=== PATIENT | female | born 1960 | race Caucasian/White ===

== ENCOUNTER → 2021-02-08 11:30 | Outpatient (CLI) | payer BC, SELFPAY ==
--- NOTE | ~2021-02-08 | XR_ITS ---
XR knee LT min 4V 02/08/2021 12:16 Indication: Left knee pain Procedure: 4 views left knee Comparison: 03/26/2008 Findings: There is severe tricompartment osteoarthritis, most advanced in the medial compartment. No fracture or traumatic malalignment. No significant joint effusion. No foreign bodies. Impression: 1: Severe osteoarthritis of the left knee. Reviewed, dictated and finalized at location B. Impression: 1: Severe osteoarthritis of the left knee.
--- NOTE | ~2021-02-08 | XR_ITS ---
XR knee RT min 4V 02/08/2021 12:16 Indication: Right knee pain Procedure: 4 views right knee Comparison: No prior studies for comparison. Findings: There is moderate osteoarthritis of the right knee. No fracture or traumatic malalignment. No significant joint effusion. No foreign bodies. Impression: 1: Moderate osteoarthritis of the right knee. Reviewed, dictated and finalized at location B. Impression: 1: Moderate osteoarthritis of the right knee.
== END ==
PROVIDERS: PCP Physician Assistant; Visit Provider Physician Assistant
DX: M17.0 Bilateral primary osteoarthritis of knee (principal)
CPT/HCPCS: 73564

== ENCOUNTER → 2021-07-06 09:38 | Outpatient (CLI) | payer BC, SELFPAY ==
--- NOTE | ~2021-07-06 | MM_ITS ---
EXAMINATION: MM screening [facility] BI w [place] HISTORY: Screening mammogram TECHNIQUE: Craniocaudal and mediolateral oblique 3-D tomosynthesis images were obtained and synthetic 2-D images were generated. CAD analysis was submitted and interpreted. COMPARISON: 08/31/2019, 03/02/2010 BREAST PARENCHYMAL COMPOSITION: The breasts are almost entirely fatty. FINDINGS: There is no evidence of suspicious mass, calcification, or architectural distortion to sugg est malignancy in either breast. There has been no suspicious interval change. IMPRESSION: 1. No mammographic evidence of malignancy. 2. Recommend routine screening mammography in one year. BI-RADS Category 1: Negative Reviewed, dictated and finalized at location A. TERMAN
== END ==
PROVIDERS: Visit Provider Advanced Practice Midwife
DX: Z12.31 Encounter for screening mammogram for malignant neoplasm of breast (principal)
CPT/HCPCS: 77063; 77067

== ENCOUNTER → 2021-07-13 00:22 | Outpatient (CLI) | payer BC, SELFPAY ==
[2021-07-13 19:57] LABS: SARS-CoV-2 RNA PCR Positive
== END ==
PROVIDERS: PCP Family Medicine; Visit Provider Physician Assistant
DX: U07.1 COVID-19 (principal)
CPT/HCPCS: C9803; U0003; U0005

== ENCOUNTER → 2021-07-20 01:15 | Outpatient (CLI) | payer BC, SELFPAY ==
[2021-07-20 18:54] LABS: SARS-CoV-2 RNA PCR Positive
== END ==
PROVIDERS: PCP Family Medicine; Visit Provider Physician Assistant
DX: U07.1 COVID-19 (principal)
CPT/HCPCS: C9803; U0003; U0005

== ENCOUNTER 2021-08-07 16:30 | Emergency (ER) | payer BC, SELFPAY ==
--- NOTE | 2021-08-07 16:34 | ED.WOUNDLAC ---
HPI - Wound/Laceration General Chief Complaint: Skin/Abscess/Foreign Body Stated Complaint: L HAND LACERATION Time Seen by Provider: 08/07/21 16:34 Source: patient and RN notes reviewed History of Present Illness HPI narrative: Patient is a 60-year-old female who presents the urgent care with complaints of a laceration to the left thumb. Patient states that she cut it with a pair of scissors approximately 8 or 9 hours ago. Patient states she is up-to-date on her tetanus shot. Patient states she cleaned it out with plain Dial soap and water and kept it covered with a bandage. No other acute complaints or injuries. No acute distress noted. Patient aware of the plan of care. Some parts of this dictation were generated by voice recognition software and may contain typographical and/or grammatical inaccuracies. Related Data Home Medications Medication Instructions Recorded Confirmed estradiol 1 mg PO DAILY 08/07/21 08/07/21 Allergies Allergy/AdvReac Type Severity Reaction Status Date / Time erythromycin base Allergy Unknown Nausea Verified 03/13/21 10:36 Review of Systems Review of Systems: CONSTITUTIONAL: Denies fever, chills, or sweats. EYES: Denies visual changes, redness, or discharge. ENT: Denies rhinorrhea, congestion, sore throat, or otalgia. CARDIOVASCULAR: Denies chest pain, palpitations, or edema. RESPIRATORY: Denies cough or dyspnea. GASTROINTESTINAL: Denies abdominal pain, nausea, vomiting, or diarrhea. GENITOURINARY: Denies dysuria or hematuria. SKIN: Reports of a laceration to the left thumb MUSCULOSKELETAL: Denies back pain, joint pain, or myalgia. NEUROLOGIC: Denies headache, numbness, or weakness. All other systems reviewed are negative, except as documented in HPI. [facility] Family History Family History Mother Diabetes mellitus Hypertension Family history of cardiovascular disease Acute myocardial infarction Family history of malignant neoplasm of uterus Sibling Hypertension Father Family history of elevated blood lipids Family history of Parkinson's disease Grandparent Cerebrovascular accident Family history of lung cancer Family history of malignant neoplasm of uterus Social History Social History Alcohol intake: never Comments At the time of my signature, I reviewed and agree with the nursing past medical, surgical, social, and family history. There is no relevant family history pertinent to the patient complaint. Exam Narrative: GENERAL: This is a well-nourished, well-developed patient, in no apparent distress. HEAD: normocephalic, atraumatic. EYES: PERRL. Sclera clear/white. Vision is grossly intact. EARS: External ears normal NOSE: External nose normal with no obvious nasal discharge, nares without redness, no rhinorrhea. THROAT: Mucous membranes moist NECK: Neck supple CARDIOVASCULAR: Regular rate and rhythm without murmurs, gallops, or rubs. RESPIRATORY: Clear to auscultation. Breath sounds equal bilaterally. No wheezes, rales, or rhonchi. SKIN: warm, intact with no suspicious lesions or rash, good texture and turgor. NEURO: awake, alert, and oriented to person, place and time. There were no obvious focal neurologic abnormalities. EXTREMITIES: No clubbing, cyanosis, or edema. Range of motion to left upper extremity within normal limits. Positive strong left radial pulse with capillary refill less than 2 seconds. Course Vital Signs Vital signs: Vital Signs Temperature 96.9 F L 08/07/21 16:39 Pulse Rate 86 08/07/21 16:39 Respiratory Rate 16 08/07/21 16:39 Blood Pressure 174/73 H 08/07/21 16:39 Pulse Oximetry 98 08/07/21 16:39 Temperature 96.9 F L 08/07/21 16:39 Pulse Rate 86 08/07/21 16:39 Respiratory Rate 16 08/07/21 16:39 Blood Pressure 174/73 H 08/07/21 16:39 Pulse Oximetry 98 08/07/21 16:39 Reviewed-patient is informed lupe
[2021-08-07 16:39] VITALS: BP 174/73; PULSE 86; RESP 16; TEMP 36.1; O2SAT 98
== END 2021-08-07 17:05 | disposition home or self-care (01) ==
PROVIDERS: Emergency Provider Nurse Practitioner Family; PCP Family Medicine
DX: S61.012A Laceration without foreign body of left thumb without damage to nail, initial encounter (principal); W27.2XXA Contact with scissors, initial encounter
CPT/HCPCS: 12001; 99212; G0463

== ENCOUNTER 2021-11-25 00:16 | Day surgery (SDC) | payer BC, SELFPAY ==
[2021-11-13 13:15] VITALS: BMI 44.6
[2021-11-25 07:10] VITALS: BP 149/84; PULSE 67; RESP 16; TEMP 36.4; O2SAT 99; BMI 43.6
[2021-11-25] MEDS: LACTATED RINGERS 1,000 ML 150 ML IV CONT (07:29)
--- NOTE | 2021-11-25 07:42 | PM.HPGS ---
History of Present Illness History of Present Illness Consent: Risks, benefits, and alternatives have been discussed and questions answered. Patient agrees to proceed with procedure. Chief complaint: neoplasm screening Narrative: Inés Vicente is a 61 year old female Referred for colon cancer screening Review of Systems Review of Systems: All systems reviewed & are unremarkable except as noted in HPI and below PMFSH Family History Family History Mother Diabetes mellitus Hypertension Family history of cardiovascular disease Acute myocardial infarction Family history of malignant neoplasm of uterus Sibling Hypertension Father Family history of elevated blood lipids Family history of Parkinson's disease Grandparent Cerebrovascular accident Family history of lung cancer Family history of malignant neoplasm of uterus Social History Social History Smoking status: Never smoker Alcohol intake: never Substance use: never Substance use type: does not use Living arrangements: with family Spiritual care concerns: No Meds Home Medications and Allergies Home Medications Medication Instructions Recorded Confirmed Type naproxen 500 mg tablet 500 mg PO BID PRN #60 tablet 02/07/21 11/25/21 Rx hydroxyzine HCl 10 mg tablet 10 mg PO TID PRN #30 tablet 08/28/21 11/25/21 Rx zolpidem 10 mg tablet 10 mg PO QHS PRN #30 tablet 09/13/21 11/25/21 Rx citalopram 20 mg tablet See Rx Instructions .ROUTE 10/23/21 11/25/21 History .COMPLEX tablet estradiol 1 mg tablet 1 mg PO DAILY 10/23/21 11/25/21 History Allergies Allergy/AdvReac Type Severity Reaction Status Date / Time erythromycin base Allergy Unknown Nausea Verified 11/25/21 07:18 celery AdvReac Anaphylaxis Verified 11/25/21 07:18 watermelon AdvReac Anaphylaxis Verified 11/25/21 07:18 Vital Signs Vital Signs - 24 hr 11/25/21 07:10 Temperature 36.4 C L Pulse Rate 67 Respiratory Rate 16 Blood Pressure 149/84 H Pulse Oximetry 99 Exam Resp: Auscultation: clear to auscultation bilaterally Cardio: Rate: regular rate Rhythm: regular rhythm GI: GI Palp: Yes Soft to palpation and No Tenderness to palpation present (GI) Assessment and Plan Assessment and plan (1) Colon cancer screening: Code(s): Z12.11 - Encounter for screening for malignant neoplasm of colon Status: Acute Assessment and Plan: Colonoscopy with possible biopsy or polypectomy or cautery or injection of substances.
--- NOTE | 2021-11-25 07:52 | P.PNAN_ITS ---
Anes - Initial Pre Proc Eval Procedure: Operation Date: 11/25/21 08:30 Proposed Procedures p Screening Colonoscopy - Jovan Montoya MD Date/Time: 11/25/21 07:52 Surgeon: Jovan Montoya MD Pre Op Diagnosis: neoplasm screening Patient Data Age: 61 Gender: F Height: 1.63 m Weight: 115.3 kg Last Vital Signs Temp 97.5 F L 11/25/21 07:10 Pulse 67 11/25/21 07:10 Resp 16 11/25/21 07:10 BP 149/84 H 11/25/21 07:10 Pulse Ox 99 11/25/21 07:10 Allergies Allergy/AdvReac Type Severity Reaction Status Date / Time erythromycin base Allergy Unknown Nausea Verified 11/25/21 07:18 celery AdvReac Anaphylaxis Verified 11/25/21 07:18 watermelon AdvReac Anaphylaxis Verified 11/25/21 07:18 Home Medications Medication Instructions Recorded Confirmed Type naproxen 500 mg tablet 500 mg PO BID PRN #60 tablet 02/07/21 11/25/21 Rx hydroxyzine HCl 10 mg tablet 10 mg PO TID PRN #30 tablet 08/28/21 11/25/21 Rx zolpidem 10 mg tablet 10 mg PO QHS PRN #30 tablet 09/13/21 11/25/21 Rx citalopram 20 mg tablet See Rx Instructions .ROUTE 10/23/21 11/25/21 History .COMPLEX tablet estradiol 1 mg tablet 1 mg PO DAILY 10/23/21 11/25/21 History Patient hx anesthesia problems: none Family hx anesthesia problems: none Results Review: All pre-operative results and documents have been reviewed as part of the pre-operative evaluation. [facility] Family History Family History Mother Diabetes mellitus Hypertension Family history of cardiovascular disease Acute myocardial infarction Family history of malignant neoplasm of uterus Sibling Hypertension Father Family history of elevated blood lipids Family history of Parkinson's disease Grandparent Cerebrovascular accident Family history of lung cancer Family history of malignant neoplasm of uterus Social History Social History Smoking status: Never smoker Alcohol intake: never Substance use: never Substance use type: does not use Living arrangements: with family Spiritual care concerns: No Anes - Eval Final PreProcedure Day of Procedure 11/25/21 07:52 Patient weight: morbidly obese Heart: regular rate and rhythm Lungs: clear to auscultation Airway: Mallampati scale class II Neurological: alert and oriented Last oral intake: >/= 8 hours ASA classification: III Emergent: no Anesthetic plan: proceed Anesthesia type and monitoring: general GIVS and standard monitoring Results Review: All pre-operative results and documents have been reviewed as part of the pre-operative evaluation. Informed Consent: The patient's anesthetic plan and its attendant risks and benefits were discussed with the patient/family/POA. Questions were solicited and answers provided to the satisfaction of the patient/family/POA.
[2021-11-25 08:37] VITALS: BP 144/86; PULSE 65; RESP 14; O2SAT 96
[2021-11-25 08:47] VITALS: BP 144/90; PULSE 62; RESP 21; O2SAT 96
[2021-11-25 08:57] VITALS: BP 140/85; PULSE 61; RESP 16; O2SAT 100
== END 2021-11-25 09:08 | disposition home or self-care (01) ==
PROVIDERS: PCP Family Medicine; Visit Provider Internal Medicine Gastroenterology
PROC: 0DJD8ZZ Inspection of Lower Intestinal Tract, Via Natural or Artificial Opening Endoscopic (ICD-10-PCS; CPT 45378; principal; 2021-11-25 08:30)
DX: Z12.11 Encounter for screening for malignant neoplasm of colon (principal)
CPT/HCPCS: 45378; J2704; J7120

== ENCOUNTER → 2022-03-15 08:29 | Outpatient (CLI) | payer BC, SELFPAY ==
--- NOTE | ~2022-03-15 | XR_ITS ---
EXAM: XR lumbar spine min 4V DATE: 03/15/2022 09:29 HISTORY: M54.9 - Dorsalgia, unspecified . COMPARISON: None available. FINDINGS: Cholecystectomy clips. Bilateral pelvic and right iliac vascular clips. Multilevel disc sp marvin narrowing and marginal osteophytosis, severe at L3-4. 6 nonrib-bearing lumbar-type vertebral bodi es. Possible hypoplastic/absent ribs at T12 versus true 6 lumbar-type vertebral bodies. The last full y formed disc will be designated L6-S1. Pedicles intact. Normal vertebral body alignment. Vertebral b tiffany heights preserved. Multilevel facet sclerosis and hypertrophy. No fracture or dislocation. IMPRESSION: Spinal level numbering anomaly, described above. Severe degenerative disc disease at L3-4 . Multilevel facet arthropathy. Reviewed, dictated and finalized at location K. IMPRESSION: Spinal level numbering anomaly, described above. Severe degenerativ e disc disease at L3-4. Multilevel facet arthropathy.
--- NOTE | ~2022-03-15 | XR_ITS ---
XR cervical spine 4-5V DATE: 03/15/2022 09:29 INDICATION: Neck pain TECHNIQUE: AP, open-mouth, lateral and swimmer views COMPARISON: None FINDINGS: There is reversal of cervical curvature and mild cervical levoscoliosis. There is approximately 2.5 mm anterolisthesis and C3-4. There is approximately 1.3 mm anterolisthesis at C4-5. Moderately severe degenerative disc disease at C5-6. C1 and C2 are normally aligned and the odontoid process is intact. No fracture or dislocation or lock ed facet or prevertebral soft tissue swelling. IMPRESSION: Reversal cervical curvature and mild levoscoliosis Anterolisthesis at C3-4 and C4-5 Moderately severe degenerative disc disease at C5-6 Reviewed, dictated and finalized at location B.
== END ==
PROVIDERS: PCP Family Medicine; Visit Provider Family Medicine
DX: M50.322 Other cervical disc degeneration at C5-C6 level (principal); M51.36 Other intervertebral disc degeneration, lumbar region
CPT/HCPCS: 72050; 72110

== ENCOUNTER 2022-06-25 09:06 | Outpatient (CLI) | payer BC, SELFPAY ==
[2022-06-25 19:28] LABS: Vitamin D 25 Hydroxy 41.4 ng/mL
== END 2022-06-25 09:07 | disposition home or self-care (01) ==
LOC: ANHGOSHLAB 09:08
PROVIDERS: PCP Family Medicine; Visit Provider Family Medicine
DX: E55.9 Vitamin D deficiency, unspecified (principal)
CPT/HCPCS: 36415; 82306

== ENCOUNTER 2022-12-23 08:16 | Outpatient (CLI) | payer OTHER, SELFPAY ==
--- NOTE | ~2022-12-23 | MR_ITS ---
MRI of the cervical spine Clinical History: Chronic neck pain Technique: Axial T2-weighted and gradient images, and sagittal T1-weighted, T2-weighted, and STIR sherly ges were acquired. Findings: There is minimal reversal normal cervical lordosis. No fracture or subluxation seen. No abn ormal bone marrow signal identified. At C2-C3, there is no disc bulge or herniation. There is mild bilateral facet arthropathy. No spinal canal stenosis, cord compression, or neural foraminal narrowing. At C3-C4, there is right foraminal disc osteophyte complex with right-sided facet arthropathy and sev ere right neural foraminal narrowing. No spinal canal stenosis or cord compression. Left neural yeni en is preserved. At C4-C5, there is minimal disc osteophyte complex and mild facet arthropathy. There is no spinal can al stenosis, cord compression, or definite neural foraminal narrowing. At C5-C6, there is mild disc osteophyte complex and probable minimal flattening the ventral cord. The re is left neural foraminal narrowing, with mild left facet arthropathy. Right neural foramen preserv ed. At C6-C7, there is no disc bulge or herniation. No spinal canal stenosis, cord compression, or neural foraminal narrowing. No abnormal signal seen in the spinal cord. Paravertebral soft tissues are unremarkable. Impression: Severe right neural foraminal narrowing at C3-C4 related to right-sided facet arthropathy and right f oraminal disc osteophyte complex. Minimal flattening of the ventral cord at C5-C6 related to disc osteophyte complex. Left neural yeni inal narrowing also present at this level. Reviewed, dictated and finalized at [facility]. Impression: Severe right neural foraminal narrowing at C3-C4 related to right-sided facet a rthropathy and right foraminal disc osteophyte complex. Minimal flattening of the ventral cord at C5-C6 related to disc osteophyte comp ne. Left neural foraminal narrowing also present at this level.
--- NOTE | ~2022-12-23 | MR_ITS ---
MRI of the lumbar spine Clinical History: Back pain Technique: Axial T2-weighted images, and sagittal T1-weighted, T2-weighted, and T2 fat-sat images wer e acquired. Findings: There is no fracture or sublocation of the lumbar spine. Vertebral bodies maintain normal h eight and alignment. No suspicious bone marrow signal abnormality seen. At L1-L2, there is moderate facet arthropathy. No disc bulge or herniation. No spinal canal stenosis. There is mild right neural foraminal narrowing. Left neural foramen preserved. At L2-L3, there is advanced degenerative disc narrowing with diffuse disc bulge. There is moderate fa cet arthropathy. There is mild right lateral recess stenosis. There is moderate right neural foramina l narrowing and mild left neural foraminal narrowing. At L3-L4, there is mild diffuse disc bulge with severe facet arthropathy. No spinal canal stenosis. T here is moderate bilateral neural foraminal narrowing. At L4-L5, there is diffuse disc bulge and severe facet arthropathy, with resultant moderate central c anal stenosis. There is severe bilateral neural foraminal narrowing. At L5-S1, there is advanced facet arthropathy. No disc bulge or herniation. No spinal canal stenosis or neural foraminal narrowing. Paravertebral soft tissues are unremarkable. Impression: Moderate degenerative spondylosis, as detailed above. Findings are worst at L4-L5. Reviewed, dictated and finalized at [facility]. Impression: Moderate degenerative spondylosis, as detailed above. Findings are worst at L4- L5.
== END 2022-12-23 08:17 ==
PROVIDERS: PCP Family Medicine; Visit Provider Family Medicine
DX: M54.2 Cervicalgia (principal); G89.29 Other chronic pain; M47.896 Other spondylosis, lumbar region
CPT/HCPCS: 72141; 72148

== ENCOUNTER 2023-09-27 12:07 | Emergency (ER) | payer BC, SELFPAY ==
--- NOTE | 2023-09-27 12:22 | ED.URI ---
HPI - URI/Sore Throat General Chief Complaint: Upper Respiratory Infection Stated Complaint: BODY ACHES/HEADACHE/SORE THROAT/EARACHE Time Seen by Provider: 09/27/23 12:22 Source: patient, RN notes reviewed and old records reviewed Mode of arrival: ambulatory Limitations: no limitations History of Present Illness HPI Narrative: 62-year-old female presents to the [facility] with complaints of body aches, runny nose, sore throat, ear pain that started on Thursday, 2 days ago Treatments prior to arrival: cold medicine Related Data Home Medications Medication Instructions Recorded Confirmed esomeprazole magnesium 20 mg 20 mg PO DAILY 04/24/22 09/27/23 capsule,delayed release (Nexium) meloxicam 7.5 mg tablet 7.5 mg PO BIDWMEAL PRN knee pain 01/01/23 09/27/23 Allergies Allergy/AdvReac Type Severity Reaction Status Date / Time erythromycin base Allergy Unknown Nausea Verified 09/27/23 12:16 celery AdvReac Anaphylaxis Verified 09/27/23 12:16 watermelon AdvReac Anaphylaxis Verified 09/27/23 12:16 Review of Systems Review of Systems: All systems reviewed & are unremarkable except as noted in HPI and below Constitutional: Constitutional: Reports as per HPI, Reports body ache(s) and Reports headache(s) Eyes: Eyes: Reports no additional eye complaints ENT: Reports as per HPI, Reports nasal discharge and Reports sore throat Cardiovascular: Cardiovascular: Reports no additional cardiovascular complaints, Denies chest pain and Denies dyspnea Respiratory: Respiratory: Reports no additional respiratory complaints, Denies chest congestion, Denies cough and Denies dyspnea Gastrointestinal: Gastrointestinal: Reports no additional gastrointestinal complaints, Denies abdominal pain, Denies nausea and Denies vomiting Musculoskeletal: Musculoskeletal: Reports no additional musculoskeletal complaints Integumentary/Breasts: Skin/Breast: Reports system reviewed and no additional complaints, except as docu Neurologic: Reports system reviewed and no additional complaints, except as documented Psychiatric: Psychiatric: Reports no additional psychiatric complaints Allergic/Immunologic: Allergic/Immunologic: Reports no additional allergic/immunologic complaints PMFSH Past Medical History Medical History Arthritis Endometrial cancer GERD (gastroesophageal reflux disease) IBS (irritable bowel syndrome) Surgical History Surgical History H/O: hysterectomy 2010 Family History Family History Mother Diabetes mellitus Hypertension Family history of cardiovascular disease Acute myocardial infarction Family history of malignant neoplasm of uterus Depression Sibling Hypertension Diabetes mellitus Father Family history of elevated blood lipids Family history of Parkinson's disease Heart disease Grandparent Cerebrovascular accident Family history of lung cancer Family history of malignant neoplasm of uterus Daughter Hypertension Social History Social History Social History: Caffeine- daily Smoking status: Never smoker Alcohol intake: never Substance use: never Substance use type: does not use Do You Feel Safe in your Home?: Yes Lack of Transportation: No Lack of Food: Never True Current Housing: I Have Housing Concerned About Future Housing: No Difficulty Paying Gas/Electric Bills: No Difficulty Paying for Meds: No Currently Unemployed: No Education: Trade/Vocational Certificate Difficulty w/ Childcare or Family Care: No Living arrangements: with family Spiritual care concerns: No Comments At the time of my signature, I reviewed and agree with the nursing past medical, surgical, social, and family history. There is no relevant family history pertinent to the
[2023-09-27 12:29] VITALS: BP 145/95; PULSE 89; RESP 16; TEMP 36; O2SAT 99
== END 2023-09-27 12:53 | disposition home or self-care (01) ==
PROVIDERS: Emergency Provider Nurse Practitioner; PCP Family Medicine
DX: U07.1 COVID-19 (principal); Z20.822 Contact with and (suspected) exposure to COVID-19; M19.90 Unspecified osteoarthritis, unspecified site; K21.9 Gastro-esophageal reflux disease without esophagitis; Z85.42 Personal history of malignant neoplasm of other parts of uterus
CPT/HCPCS: 87081; 87426; 87804; 87880; 99213; G0463

== ENCOUNTER 2024-05-09 17:00 | Outpatient (CLI) | payer BC, SELFPAY ==
[2024-05-09 17:19] LABS: Basophils Absolute Auto 0.1 K/mm3 (0.0-0.1); Basophils Percent Auto 1.2 % (0.2-1.2); Eosinophils Absolute Auto 0.4 K/mm3 (0-0.3); Eosinophils Percent Auto 4.2 % (0-4.4); Hematocrit 44.2 % (37.0-47.0); Hemoglobin 14.7 g/dL (12.0-15.0); Immature Granulocyte Absolute 0.02 K/mm3 (0.00-0.031); Immature Granulocyte Percent A 0.2 % (0-0.5); Lymphocytes Percent Auto 32.2 % (18.3-44.2); Mean Corpuscular HGB Conc 33.3 g/dl (32-36); Mean Corpuscular Volume 93.2 fl (80-100); Mean Platelet Volume 9.1 fl (7.4-10.4); Monocytes Absolute Auto 0.7 K/mm3 (0.1-0.6); Neutrophils Absolute Auto 4.6 K/mm3 (1.3-6.7); Neutrophils Percent Auto 54.2 % (45.5-73.1); Platelet Count Result 285 k/mm3 (150-375); Red Blood Count 4.74 M/mm3 (4.2-5.4); Red Cell Distribution Width 12.6 % (11.5-14.5); White Blood Count 8.4 K/mm3 (4.5-10.0)
[2024-05-09 17:29] LABS: Alanine Aminotransferase 24 U/L (6-35); Albumin Level 4.3 g/dL (3.5-5.1); Alkaline Phosphatase 81 U/L (38-126); Anion Gap 7 mmol/L (4-12); Aspartate Amino Transferase 27 U/L (14-36); Blood Urea Nitrogen 22 mg/dL (7-17); Calcium 9.9 mg/dL (8.4-10.2); Carbon Dioxide 29 mmol/L (22-30); Chloride 102 mmol/L (98-107); Cholesterol 165 mg/dL (0-200); Estimated Glomerular Filt Rate 50; Glucose 82 mg/dL (65-110); HDL Direct 48 mg/dL; Potassium 4.3 mmol/L (3.4-5.0); Sodium 138 mmol/L (137-145); Triglycerides 119 mg/dL (<150)
[2024-05-09 17:40] LABS: LDL Cholesterol Direct 83 mg/dL
[2024-05-09 17:53] LABS: Vitamin D 25 Hydroxy 47.5 ng/mL
== END 2024-05-09 17:01 | disposition home or self-care (01) ==
LOC: ANHLAB 17:01
PROVIDERS: PCP Family Medicine; Visit Provider Nurse Practitioner
DX: F41.9 Anxiety disorder, unspecified (principal); E55.9 Vitamin D deficiency, unspecified; Z13.220 Encounter for screening for lipoid disorders
CPT/HCPCS: 36415; 80053; 80061; 82306; 85025

== ENCOUNTER 2024-08-30 13:48 | Outpatient (CLI) | payer MEDICAID, SELFPAY ==
[2024-08-30 14:35] LABS: Alanine Aminotransferase 42 U/L (6-35); Alkaline Phosphatase 94 U/L (38-126); Anion Gap 7 mmol/L (4-12); Aspartate Amino Transferase 31 U/L (14-36); Bilirubin,Total 0.8 mg/dL (0.2-1.3); Blood Urea Nitrogen 21 mg/dL (7-17); Calcium 9.4 mg/dL (8.4-10.2); Carbon Dioxide 28 mmol/L (22-30); Chloride 106 mmol/L (98-107); Estimated Glomerular Filt Rate 51; Glucose 94 mg/dL (65-110); Potassium 4.2 mmol/L (3.4-5.0); Sodium 141 mmol/L (137-145)
[2024-08-30 15:46] LABS: Free T4 Free Thyroxine 1.03 ng/dL (0.78-2.19)
[2024-08-30 19:33] LABS: Hemoglobin A1C 5.2 % (<5.7)
== END 2024-08-30 13:49 | disposition home or self-care (01) ==
PROVIDERS: PCP Family Medicine; Visit Provider Family Medicine
DX: R53.83 Other fatigue (principal); R79.89 Other specified abnormal findings of blood chemistry
CPT/HCPCS: 36415; 80053; 83036; 84439; 84443

== ENCOUNTER 2024-09-06 11:37 | Outpatient (CLI) | payer MEDICAID, SELFPAY ==
--- NOTE | ~2024-09-06 | DEXA_ITS ---
Bone Density Report Name: STACEY KOROMA Age: 63 Sex: Female Ethnicity: White Date of : 1960 Indication: postmenopausal; screening for osteoporosis; height loss; cancer; hysterectomy; Referring Provider: STEPH VEE Study: Bone densitometry was performed. Exam Date: September 06, 2024 Accession number: [id number] Bone Density: Region BMD T-score Z-score Classification AP Spine(L1-L4) 1.238 1.7 3.4 Normal Femoral Neck (Left) 0.778 -0.6 0.8 Normal Total Hip (Left) 0.903 -0.3 0.8 Normal Femoral Neck (Right) 0.823 -0.2 1.2 Normal Total Hip (Right) 1.011 0.6 1.7 Normal Femoral Neck Mean 0.800 -0.4 1.0 Normal Total Hip Mean 0.957 0.1 1.2 Normal World Health Organization criteria for BMD impression classify patients as: Normal (T-score at or above -1.0), Osteopenia (T-score between -1.0 and -2.5), or Osteoporosis (T-score at or below -2.5). 10-year Fracture Risk: FRAX not reported because: All T-scores for Spine Total, Hip Total, Femoral Neck at or above -1.0 Clinical Information Provided by Patient: Has used the following medications: Vitamin D Has the following medical conditions: Cancer, Hysterectomy Patient maximum height was 64 Menopause Age: 41 No regular weight bearing exercise Drinks caffeinated beverages Onset of menses at age 13 Number of children 0 Impression: The patient has normal bone mass. Discussion: BONE DENSITY IS ABOVE THE MINIMUM DESIRABLE LEVEL AT ALL SKELETAL SITES TESTED. This patient?s bone mineral density is above the minimum desirable level (T-score -1.0 or better) at all sites measured. The patient should follow a healthful lifestyle (good nutrition with adequate calcium and vitamin D, and appropriate weight-bearing exercise). Follow-Up: Consider repeating this study in 5 years or sooner if there is some new clinical indication. Reported by: EASTON on 09/06/2024 12:00:00 PM. Reviewed, dictated and finalized at location A.
== END 2024-09-06 11:38 | disposition home or self-care (01) ==
LOC: CHSIMG 11:38
PROVIDERS: PCP Family Medicine; Visit Provider Family Medicine
DX: Z78.0 Asymptomatic menopausal state (principal)
CPT/HCPCS: 77080

== ENCOUNTER 2025-07-26 10:51 | Outpatient (CLI) | payer OTHER, SELFPAY ==
--- NOTE | ~2025-07-26 | XR_ITS ---
EXAMINATION: XR hand BI arthritis min 3V, 07/26/2025 11:05 OFFICE MANAGER RECEPTIONIST HISTORY: BILATERAL HAND PAIN, SWELLING AND STIFFNESS COMPARISON: No comparisons available. Findings: No acute fracture or malalignment. No significant degenerative changes. Soft tissues unremarkable. Impression: No acute fracture or malalignment. Reviewed, dictated and finalized at location P. CE MANAGER RECEPTIONIST Impression: No acute fracture or malalignment.
== END 2025-07-26 10:52 | disposition home or self-care (01) ==
PROVIDERS: PCP Family Medicine; Visit Provider Family Medicine
DX: M79.641 Pain in right hand (principal); M79.642 Pain in left hand
CPT/HCPCS: 73130